=== PATIENT | female | born 1980 | race Caucasian/White ===

== ENCOUNTER 2018-11-13 20:25 | Emergency (ER) | payer BC ==
[~2018-11-13] VITALS: Ht 162.6 cm; Wt 86.4 kg
[2018-11-13 20:28] VITALS: BP 141/83; TEMP 97
[2018-11-13] MEDS ORDERED: GLUCOPHAGE850 MG/TAB PO (20:32)
[2018-11-13 21:26] LABS: BASO % 0.3 % (0.0-2.0); EOS # 0.1 (0.0-0.7); EOS % 0.8 % (0-4.0); GRAN # 9.8 (1.4-6.5); GRAN % 81.3 % (42.2-75.2); HEMOGLOBIN 12.8 g/dl (12.5-16.0); LYMPH # 1.5 (1.2-3.4); LYMPH % 12.4 % (20.0-51.0); MEAN CELL VOLUME 95 fl (80.0-100.0); MEAN CORPUSCULAR HEMOGLOBIN 32 pg (27.0-31.0); MEAN CORPUSCULAR HGB CONC 34 g/dl (33.0-37.0); MEAN PLATELET VOLUME 9.1 fl (7.4-10.4); MONO # 0.6 (0.1-0.6); MONO % 4.6 % (1.7-9.3); PLATELET COUNT 340 K/mm3 (130-400); RED BLOOD COUNT 3.99 M/mm3 (4.10-5.30); REDCELL DISTRIBUTION WIDTH-CV 11.9 % (11.5-14.5)
[2018-11-13 21:31] LABS: ALBUMIN 4.2 gm/dL (3.5-5.0); BILIRUBIN,TOTAL 0.5 mg/dL (0.0-1.0); CALCIUM 9.7 mg/dL (8.4-10.2); CREATININE, serum 0.55 (0.52-1.25); POTASSIUM 3.5 mmol/L (3.4-5.0); TOTAL PROTEIN 7.6 gm/dL (6.4-8.2)
[2018-11-13] MEDS ORDERED: NORCO 325 MG-51 TAB PO (23:02)
[2018-11-13 23:16] VITALS: PULSE 102
== END 2018-11-13 23:16 | disposition home or self-care (01) ==
LOC: COL.ER 20:25
PROVIDERS: Emergency Medicine
DX: O03.9 Complete or unspecified spontaneous abortion without complication (principal); E11.9 Type 2 diabetes mellitus without complications; Z79.84 Long term (current) use of oral hypoglycemic drugs
CPT/HCPCS: J1885; J2405; J3010; J7030